=== PATIENT | female | born 1985 | race Caucasian/White ===

== ENCOUNTER → 2023-02-02 | Outpatient (CLI) | payer OTHER | END | disposition home or self-care (01) | LOC: SLB 16:03 | PROVIDERS: ATTEND Specialist | DX: N92.6 Irregular menstruation, unspecified (principal) | CPT/HCPCS: 36415; 82670; 83001; 83002; 84146; 84443 ==

== ENCOUNTER 2023-02-08 08:41 | Outpatient (CLI) | payer OTHER ==
[2023-02-09 08:06] LABS: INSULIN 7.5 uIU/mL (2.6-24.9)
[2023-02-09 12:07] LABS: ESTRADIOL 36.5 pg/mL (.); FOLLICLE STIMULATION HORMONE 7.6 mIU/mL (.); THYROID PEROXIDASE (TPO) AB >600 IU/mL (0-34)
[2023-02-09 17:06] LABS: ANTI NUCLEAR AB WITH REFLEX Positive (Negative)
[2023-02-11 03:37] LABS: dRVVT 35.3 sec (0.0-47.0)
== END 2023-02-08 19:17 | disposition home or self-care (01) ==
LOC: SLB 08:41
PROVIDERS: ATTEND Specialist
DX: N96 Recurrent pregnancy loss (principal)
CPT/HCPCS: 36415; 81291; 81403; 81407; 81479; 82670; 83001; 83525; 84443; 85613; 85670; 85705; 85732; 86038; 86147; 86376

== ENCOUNTER 2023-03-19 12:50 | Outpatient (CLI) | payer OTHER | END 2023-03-19 18:53 | disposition home or self-care (01) | LOC: SCT 12:50 | PROVIDERS: ATTEND Specialist | DX: N92.6 Irregular menstruation, unspecified (principal); N97.9 Female infertility, unspecified | CPT/HCPCS: 74740; 58340; Q9967; C1751 ==

== ENCOUNTER 2023-04-05 12:18 | Outpatient (CLI) | payer OTHER | END 2023-04-05 19:16 | disposition home or self-care (01) | LOC: SLB 12:18 | PROVIDERS: ATTEND Specialist | DX: R76.8 Other specified abnormal immunological findings in serum (principal) | CPT/HCPCS: 36415 ==

== ENCOUNTER 2023-08-14 17:30 | Outpatient (CLI) | payer OTHER | END 2023-08-14 20:15 | disposition home or self-care (01) | LOC: SLB 17:30 | PROVIDERS: ATTEND Specialist | DX: N91.2 Amenorrhea, unspecified (principal) | CPT/HCPCS: 36415; 84144; 84702 ==